=== PATIENT | male | born 1960 | race African-American/Black ===

== ENCOUNTER 2018-07-18 20:02 | Emergency (ER) | payer SELFPAY ==
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
[2018-07-18] MEDS ORDERED: PIPERACILLIN/TAZO*3.375GM VIAL 3.375 GM in NS(*) 0.9% 100 ML MINI-BAG 100 ML IVPB ONE (20:55)
[2018-07-18] MEDS ORDERED: OCTREOTIDE ACE 200 MCG/ML 5 ML 200 MCG in NS(*) 0.9% 100 ML BAG 99 ML IVPB ONE (20:55)
[2018-07-18] MEDS ORDERED: PROMETHAZINE 25 MG/ML 1 ML AMP IVP ONE (20:55)
[2018-07-18] MEDS ORDERED: LABETALOL HCL 100 MG/20ML VIAL IVP ONE (20:55)
[2018-07-18] MEDS ORDERED: OCTREOTIDE ACE 200 MCG/ML 5 ML VIAL IVP ONE (20:55)
--- NOTE | 2018-07-18 22:10 | EKG ---
[place] [facility] [place] NAME: FÉLIX COTTRELL : [id number] MR: [id number] V: [id number] EXAM DATE: ORDERING PHYSICIAN: DIONICIO WALTON TECHNOLOGIST: TARA Test Reason : CP Blood Pressure : / mmHG Vent. Rate : 125 BPM Atrial Rate : 125 BPM P-R Int : 144 ms QRS Dur : 080 ms QT Int : 296 ms P-R-T Axes : 069 047 019 degrees QTc Int : 427 ms Sinus tachycardia with premature atrial beat. Non-specific T wave flattening. No previous ECGs available Confirmed by VIRGILIO YUEN ([id number]) on 07/18/2018 11:42:16 PM Referred By: Confirmed By:VIRGILIO YUEN
[2018-07-18 22:14] VITALS: BP 166/122
[2018-07-18 23:13] LABS: PLATELET COUNT, AUTOMATED 237 K/uL (150-450)
[2018-07-18 23:22] LABS: INR 0.99
--- NOTE | 2018-07-18 23:32 | RADIOLOGY IMAGING REPORT ---
FACILITY: [facility] - [place] PATIENT NAME: Venkat Lezama : 1960 MR: [id number] V: [id number] EXAM DATE: ORDERING PHYSICIAN: DIONICIO WALTON TECHNOLOGIST: Location: [facility] - [place] Patient: Venkat Lezama : 1960 Visit/Account:[id number] Date of Sevice: 07/18/2018 CT Head without contrast Indication: Chest pain, headache, elevated blood pressure. Comparison: None available. Technique: Axial CT images were obtained through the brain from the skull base to the vertex without administration of IV contrast. One of the following dose optimization techniques was utilized in th e performance of this exam: Automated exposure control; adjustment of the mA and/or kV according to t he patient's size; or use of an iterative reconstruction technique. Specific details can be referen aminata in the facility's radiology CT exam operational policy. Findings: No evidence of mass, mass effect, or midline shift. No acute intracranial hemorrhage or acute territorial infarction. Skull is nonacute. Globes and orbits are normal. The visualized paranasal sinuses and mastoid air spaces are clear. IMPRESSION: No acute intracranial abnormality. Report Dictated By: Ja Pinedo MD at 07/18/2018 11:25 PM Report E-Signed By: Ja Pinedo MD at 07/18/2018 11:29 PM WSN:[id number]
--- NOTE | 2018-07-18 23:35 | RADIOLOGY IMAGING REPORT ---
[facility] PATIENT NAME: Venkat Lezama : 1960 MR: [id number] V: [id number] EXAM DATE: ORDERING PHYSICIAN: DIONICIO WALTON TECHNOLOGIST: Location: [facility] Patient: Venkat Lezama : 1960 Visit/Account:[id number] Date of Sevice: 07/18/2018 CHEST SINGLE AP 07/18/2018 20:54 hours. HISTORY: Chest pain. Headache. Elevated blood pressure. COMPARISON: None. TECHNIQUE: Portable AP view of the chest. FINDINGS: TUBES/LINES/HARDWARE: None. PULMONARY/PLEURA: 5 mm density at the left mid lung field projecting between the posterior sixth and seventh ribs. Right lung is clear. There is no pneumothorax or pleural effusion. There is eventration of the right hemidiaphragm. CARDIOMEDIASTINAL: Cardiac and mediastinal silhouettes are within normal limits. BONES/SOFT TISSUES: No acute osseous abnormality. The visible abdomen is normal. IMPRESSION: 1. No acute cardiopulmonary process. 2. 5 mm density at the left mid lung field, potentially summation artifact, lobe pulmonary nodule is possible. At the minimum, follow-up chest x-ray is recommended in 2-3 months to reevaluate. If it per sists, CT scan is suggested at that time. Alternatively, if patient is at high risk for malignancy, f ollow-up CT chest could be performed sooner for further evaluation. Report Dictated By: Elizabeth Valenzuela at 07/18/2018 11:28 PM Report E-Signed By: Elizabeth Valenzuela at 07/18/2018 11:31 PM WSN:[id number]
== END 2018-07-18 23:58 ==
LOC: ER 20:30
DX: F41.9 Anxiety disorder, unspecified (principal); R03.0 Elevated blood-pressure reading, without diagnosis of hypertension; R91.1 Solitary pulmonary nodule; R51 Headache
CPT/HCPCS: 36415; 70450; 71045; 84484; 85025; 85610; 85730; 93005; 96374; 96375; 99001; 99284; J2550; 82040; 82247; 82310; 82374; 82435; 82565; 82947; 84075; 84132; 84155; 84295; 84450; 84460; 84520